=== PATIENT | male | born 1995 | race Two or more races ===

== ENCOUNTER 2022-10-15 10:18 | Outpatient (CLI) | payer OTHER ==
--- NOTE | 2022-10-15 10:58 | Sleep Patient Instructions ---
Sleep Center Visit Summary - Patient Visit Information Reason for Visit: Initial consult for evaluation of sleep disordered breathing and other sleep issues. - Patient Instructions Instructions Attached: Sleep Study, Sleep Clinic Visit, Sleep Study Home Monitor Additional Instructions: You will be completing a sleep study, either an in-lab polysomnography (PSG) or home sleep study (HST). You will follow-up in the sleep care office after the sleep study is completed to hear the results and talk about therapy, if needed. You will be called by our office staff to schedule this appointment, but you may contact us with any questions. - Clinic Information Contact: [facility] [address] [place] [address] [email or web address] T: [phone]
--- NOTE | 2022-10-15 11:01 | SLEEP CARE CONSULTATION ---
Information from patient questionnaire entered by Denilson Duckworth. I have reviewed and concur with the information entered by Denilson Duckworth. This document represents the service I personally performed and the decisions made by me, Alejandra Jamil ARNP. History of Present Illness Service Date and Time: 10/15/2022 1018 Reason for Visit: New patient Accompanied by: Girlfriend Chief Complaint: reports: Insomnia, Snoring, Observed pauses in breathing, Fatigue, Frequent awakenings at night, Other (SLEEP PARALYSIS) Date of Onset: PAUSES IN SLEEP 6MONTHS Usual bedtime: 9-10 Time it takes to fall asleep: 15-30MIN Snores at night: Yes Observed to quit breathing while asleep: Yes Sleeps alone due to snoring: No Number of times waking at night: 3-5 Reasons for waking at night: reports: Snoring, Gasping for air, Other (unknown reasons). denies: Choking Toss, Turn, or Twitch while sleeping: Yes Recalls having dreams: Yes Usually gets out of bed at: 5AM; sometimes will sleep later on weekends Feels refreshed in the morning: No Morning headache: Yes (2-3 days a week, go away once he starts moving) Sleepy or fatigued during the day: Yes Ever fallen asleep while driving: No Takes day naps: Yes (daily, for an hour) Dreams during day naps: Yes (not all the time) Prior sleep studies: No Additional HPI information: I had the pleasure of seeing DONNY PETERSON today regarding the possibility of him having a sleep disorder. His current complaints are fatigue, frequent night awakenings, insomnia, observed pauses in breathing, snoring and sleep paralysis. He is here with his girlfriend that has been telling him that he is choking in his sleep. He gets sleep paralysis often. He has trouble falling asleep and will wake up often at night. He states he feels fatigued during the day and will sometimes take a nap but this does not make him feel less tired. - Parasomnia Symptoms Ever been unable to move upon waking from sleep: Yes (2-3 times a week, has since a child) Walks in sleep: No Talks in sleep: No Ever acted out dreams in sleep: No Ever felt weak in the knees when startled or emotional: No Bothered by creepy, crawly, restless sensations in legs: No Problems with memory or concentration: No Subjective Initial [place] Sleepiness Scale score: 7 (10/15/22) Past Medical History Past Medical History: reports: Arthritis Social History The patient's occupation is a AM. Patient is Single and lives in . Have you smoked in the past 12 months: No Alcohol use: Yes Alcohol amount and frequency: 3-5 DRINKS 1-2 X MONTH Caffeine use: Yes Caffeine amount and frequency: 1 CUP COFFEE EVERY MORNING Family History Family history of sleep disordered breathing: Yes Family Hx Sleep Apnea: Father: Snoring Allergies and Home Medications Known drug allergies: No Drug allergies reviewed: Yes Home medication list reviewed: Yes (has an anti-inflammatory, does not know name) Review of Systems Cardiovascular: denies: high blood pressure Respiratory: denies: shortness of breath Gastrointestinal: denies: heartburn Neurological: reports: headaches. denies: head trauma Psychiatric: denies: anxiety, depression Ear/Nose/Throat: reports: wisdom teeth removed. denies: injury to nose, tonsillectomy Musculoskeletal: reports: back pain, joint swelling Immunologic: reports: sneezing. denies: allergies to food or environment Physical Exam Vital signs obtained and entered by: DENILSON Coronel MA Blood Pressure: 140/90 (LEFT ARM) Cuff size: regular Heart Rate: 73 O2 Saturation: 99 Height: 5 ft 6 in Weight: 198 lb 6.4 oz Body Mass Index: 32.0 BMI Classification: Obese Neck circumference: 17 Mouth and throat: narrow oropharynx Soft palate: long Hard palate: arched Uvula: normal Uvula visualization: 0% Mallampati Class IV Tongue: enlarged in size with teeth spears on lateral edges Tonsils: 1+ Neck: normal w/o lymphadenopathy or thyromegaly Heart: regular rate and rhythm Lungs: clear bilaterally Impression and Plan 1. Suspected Obstructive Sleep Apnea-Hypopnea Syndrome, as suggested by a history of loud and irregular snoring, observed cessation of breath while asleep, gasping or choking in sleep, morning headache, frequent awakening during the night and unrefreshed sleep. Narrow oropharynx and obesity are common predisposing factors for obstructive sleep apnea-hypopnea syndrome. I recommend proceeding to polysomnography to confirm the diagnosis and to assess severity. If the patient has significant sleep disordered breathing, a manual CPAP titration study will also be performed to find the optimal treatment pressure. I informed the patient of what the sleep studies involve and after some discussion, obtained agreement to proceed. The pathophysiology of obstructive sleep apnea-hypopnea syndrome was discussed with the patient and health risks of cardiovascular and cerebrovascular disease if not treated. Risks of drowsy driving discussed in detail and patient advised to avoid long distance driving and to tub puller at the first sign of drowsiness. Patient agreed to plan. * Schedule polysomnography. * Avoid long distance driving or driving when feeling sleepy. * Avoid alcohol, sedative and muscle relaxant around bedtime. * Attempt to lose weight. * Review instructions provided by trained office staff on how to prepare for the sleep study. * Return for follow-up after sleep study completed. Counseling Topics: Weight loss health impact Visit Type: In Office Time Spent with Patient (minutes): 31 Provider Statement: I spent 100% of the Face to Face Visit with the patient with greater than 50% spent counseling the patient and coordination of care.
[2022-10-15 11:11] VITALS: BP 140/90; O2SAT 99
== END 2022-10-15 10:19 | disposition home or self-care (01) ==
LOC: SC 10:18
PROVIDERS: ATTEND Nurse Practitioner Family
DX: R06.83 Snoring (principal); R06.81 Apnea, not elsewhere classified; G47.8 Other sleep disorders; R53.83 Other fatigue; R51.9 Headache, unspecified
CPT/HCPCS: 99203; 99212

== ENCOUNTER → 2022-11-14 | Outpatient (CLI) | payer OTHER | LOC: SC 09:27 | PROVIDERS: ATTEND Nurse Practitioner Family | DX: Z53.9 Procedure and treatment not carried out, unspecified reason (principal) ==